=== PATIENT | male | born 1960 | race Caucasian/White ===

== ENCOUNTER → 2022-02-17 01:58 | Outpatient (CLI) | payer BC, SELFPAY ==
--- NOTE | 2022-02-17 11:00 | DI.NM_ITS ---
APPROVED REPORT Exam: Exercise Treadmill Patient Location: Out-Patient Room/Bed: Stress Nurse: Sherrill Holland RN Ordering Provider:DANICA ONEILL, Contact Number: BMI: 28.69 Baseline Rhythm: Sinus Rhythm Comment: Mild diffuse ST elevations Indications: Chest pain Medical History Medical History: HLD Cardiac Medications: Atorvastatin Allergies: No known drug allergies Cardiac Risk Factors: Family hx, 2nd hand smoke, HLD Pretest Chest Pain Characteristics: None Exercise History: Indeterminate Physical Disabilities: None Lung Sounds: Clear to auscultation Heart Sounds: Regular Stress Test Details Test: Exercise stress testing was performed using a Jace protocol. Nuclear Acquisition: Rest Tc-99m/Stress Tc-99m 1 day Rest Isotope: Tc-99m Sestamibi. Dose: 10.2 Date: 02/17/2022 Injection Time: 1110 Stress Isotope: Tc-99m Sestamibi. Dose: 32.0 Date: 02/17/2022 Injection Time: 1245 HR Resting HR Supine: 62 bpm Max Heart Rate (APMHR): 161.117743 bpm Resting HR Standin bpm Target HR (85% APMHR): 136.588761 bpm Max HR Achieved: 160 bpm % of APMHR: 99.38 Recovery HR: 79 bpm HR response to stress: Normal HR response to stress BP Resting BP Supine: 138/88 mmHg Resting BP Standin/88 mmHg Max BP: 182/70 mmHg Recovery BP: 138/78 mmHg BP response to stress: Normal blood pressure response to stress. ECG Resting ECst degree AV block Ectopy: none Comment: Mild diffuse ST elevations Stress ECG: Sinus Tachycardia ST Change: No significant ST segment changes noted Arrhythmia: None Recovery ECG: Sinus Rhythm Recovery ST Change: No significant ST segment changes noted Recovery Arrhythmia: None Clinical Reason for Termination: Fatigue Stress Symptoms: General Fatigue Exercise duration: 11 min01 sec Highest Stage Reached: Stage 4: 4.2 mph at 16% grade. Exercise capacity: 13.48 METs Rate Pressure Product: 65204 Stress ECG Conclusion 1. The resting electrocardiogram showed minor diffuse ST elevation 2. Patient exercised on the Jace protocol and completed a workload of 13.48 METS stopping due to fat igue 3. Normal heart rate and blood pressure response to exercise. Patient achieved 98% of predicted hear t rate for age 4. Electrocardiographic portion of the test was negative for myocardial ischemia 5. There were no dysrhythmias 6. See MPI report Stress Test Summary STAGE Time (mins) Speed (mph) Grade (%) HR BP SYMPTOMS METS Supine 62 138/88 Standing 75 122/88 1 3 1.7 10 97 148/80 4.6 2 6 2.5 12 113 160/72 7 3 9 3.4 14 133 180/70 10.2 4 12 4.2 16 158 12.9 1 min recovery 129 182/70 3 min recovery 82 170/70 6 min recovery 79 138/78 MPI Conclusion Myocardial perfusion is normal without evidence of ischemia or prior infarction EF is 62%, wall motion is normal Radiologist Interpretation Radiologist agrees with Refinery Superintendent's Interpretation. Radiologist Interpretation by: Sahra Sullivan MD Interpretation Date/Time: 02/17/2022 16:43:13
== END ==
PROVIDERS: Visit Provider Internal Medicine
DX: R07.89 Other chest pain (principal)
CPT/HCPCS: 78452; 93017

== ENCOUNTER 2025-05-07 03:02 | Outpatient (CLI) | payer BC, SELFPAY ==
--- NOTE | 2025-05-07 | DI.RAD_ITS ---
Exam(s) RF MODIFIED SPEECH BA SWALLOW EXAM: RF MODIFIED SPEECH BA SWALLOW CLINICAL HISTORY: ASPIRATION TECHNIQUE: Modified barium swallow was performed in conjunction with speech pathology. CONTRAST MATERIAL: Multiple consistencies of oral barium contrast were administered. COMPARISON: No exams were available for comparison FINDINGS: Note that this is not a dedicated esophagram, distal esophagus not evaluated. There was laryngeal penetration with thin liquid. There is no evidence of aspiration with any consistency. IMPRESSION: Laryngeal penetration with thin liquid. Speech pathology report to follow. RADIATION DOSE DELIVERED: gerda Howard=15.3 mGy
[2025-05-07] MEDS: Barium Sulfate 40% W/V 240 ML BTL PO (14:46)
[2025-05-07] MEDS: Barium Sulfate 700 MG TAB PO (14:46)
[2025-05-07] MEDS: Barium Sulfate 81% w/w for Oral Suspension 148 GM BTL PO (14:47)
[2025-05-07] MEDS: Barium Sulfate Oral Paste 40% W/V 230 ML TUBE PO (14:49)
--- NOTE | 2025-05-09 19:28 | ST.MBS_ITS ---
Date of Service Date of service: 05/07/25 Time of Service: 14:30 Modified Barium Swallow Study Findings: Video fluoroscopic Swallowing Evaluation (VFSE) / Modified Barium Swallow Study (MBSS) Speech Language Pathology Report Patient referred for VFSE/MBSS from Dr. Amira Mccoy given concerns for aspiration. 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 Has presented to ER for dyspnea with unrevealing workup. Followed by Speech at [facility], recommended for MBSS at [facility] to clarify diet and treatment recommendations. Patient has no recent hx of aspiration pneumonia, but reports self-limiting his diet due to a fear of choking. Initially and recently on a pureed diet, but recently progressed to more soft and regular solids. Reportedly with poor cough strength, frequently coughing on water. IMPRESSIONS: Dysphagia diagnosis: Mild oral>pharyngeal dysphagia. Dysphagia is characterized primarily by reduced oral-motor coordination resulting in intermittent disorganized vs delayed swallow onset (at level of pyriform sinus) for thin liquids. This results in flash penetration with spontaneous clearance by swallow completion due to good laryngeal closure. Flash penetration above the level of vocal cords was prevented with small sip size. For larger sip sizes, chin tuck was also effective to prevent penetration, however, patient noting this takes considerably more effort given his oral-motor discoordination and weakness. There was also no penetration with mildly thick liquids. Only trace vallecular residue present, suspect due to mild reduced stripping wave and tongue base retraction, however, this amount of residue is a normal finding in typical adults without CVA as well. There was no pyriform residue and all textures transited the UES without difficulty. Dry regular solid bolus resulted in mild-moderate posterior lingual residue but improved spontaneouslywith secondary swallow and completely resolved with cued liquid wash. There was no aspiration into the airway. Hyo-laryngeal motility was complete, though mildly delayed. Swallow safety: Patient appears to be at low risk for potential aspiration PNA and/or pulmonary compromise. Swallow efficiency: Patient appears to be at low risk for malnutrition, low risk for dehydration. RECOMMENDATIONS: Diet Texture Recommendation:? IDDSI LEVEL SOLIDS 7-Regular Solids, prn cut into bite size with extra sauce/gravy for oral clearance LIQUIDS 0-Thin Liquids Please see further details at?[email or web address] MEDICATIONS Whole with 0-Thin Liquids (small sips) or 4-Puree as needed for comfort/tolerance Diet texture modification is per patient's preference; please adjust diet textures at patient's discretion & collaboration with care team. Do not alter medications (e.g., cut)? without advice from your MD or pharmacist. Risk Management Strategies:? Small bites, approx [id number] Small sips, approx 5mL/tsp Alternate solids/liquids or secondary saliva swallow as needed for oral clearance Control risk factors for aspiration pneumonia via (a) thorough oral hygiene & (b) maintaining physical mobility as tolerated Swallow prognosis is good given: Positive prognostic factors: Age, Severity, Time since onset, Motivation, PLAN: Therapy: Recommend subsequent outpatient session with SOLAR SITE ASSESSMENT SPECIALIST to review results of today's exam and develop treatment plan as appropriate. May consider the following: Targeted Oropharyngeal Exercise per treating SOLAR SITE ASSESSMENT SPECIALIST Consider: Training in RMST Program for improvement in swallow timing, cough strength. Further Counseling re: Options for maintaining quality of life in context of dysphagia presentation OBJECTIVE Videofluoroscopic Swallow Evaluation (VFSE/MBSS) was conducted in the lateral and [id number] projection by Speech-Language Pathologist, in collaboration with Radiologist, to evaluate oropharyngeal swallow function. This is not a dedicated esophageal exam, esophageal function was not evaluated below the upper esophageal segment. 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 PO Barium Contrast Trials Oral barium water-soluble contrast was administered as follows: IDDSI Level 0 Varibar thin liquid (40% w/v) IDDSI Level 2 Varibar nectar thick/mildly thick liquid (40% w/v) IDDSI Level 4 Varibar pudding/pureed/extremely thick (40% w/v) IDDSI Level 7 Regular Solid: 1/2 leonid cracker coated in 3 mL Varibar pudding 13 mm barium tablet taken with Thin Liquids. MBSImP Component Scores: COMPONENT Scale SCORE 1 Lip closure (0-4) 1 Resulted in interlabial escape, without progression to anterior lip 2 Hold Position (0-3) 0 Maintained a cohesive bolus between tongue to palatal seal 3 Bolus Preparation (0-4) 1 Resulted in slow prolonged chewing/mashing with complete re-collection 4 Bolus Transport (0-4) 1 Demonstrated delayed initiation of tongue motion 5 Oral Residue (0-4) 2 Was a collection on oral structures 6 Swallow Initiation (0-4) 3 Occurred when the bolus head was in the pyriform sinuses 7 Soft Palate Elevation (0-4) 0 Resulted in no bolus between soft palate and t he pharyngeal wall 8 Laryngeal Elevation (0-3) 1 Was decreased with partial superior movement of thyroid cartilage/partial approximation of arytenoids to epiglottic petiole 9 Anterior Hyoid Motion (0-2) 0 Demonstrated complete anterior movement 10 Epiglottic Movement (0-2) 0 Resulted in complete inversion 11 Laryngeal Closure (0-2) 0 Was complete with no air or contrast in laryngeal vestibule 12 Pharyngeal Stripping Wave (0-2) 1 Was present, but diminished 13 Pharyngeal Contraction (0-3) 0 Was complete 14 PES Opening (0-3) 0 Was completely distended and complete duration with no obstruction of flow 15 Tongue Base Retraction (0-4) 1 Allowed a trace column of contrast or air between tongue base and pharyngeal wall 16 Pharyngeal Residue (0-4) 1 Showed a trace within or on pharyngeal structure s 17 Esophageal Clearance (0-4) NA Results: COMPONENT Scale SCORE 1 Oral Score (0-18) 7 2 Pharyngeal Score (0-29) 2 3 Esophageal Score (0-4) 0 Dysphagia Outcome and Severity Scale: COMPONENT Scale SCORE 1 LEVEL (1-7) 6 Full PO: Normal Diet - Within functional limits/modified independence Penetration-Aspiration Scale: COMPONENT Scale SCORE 1 Thin liquid (1-8) 2 Contrast entered the airway, remained above the vocal folds, and was ejected from the airway. 2 [place] thick (1-8) 1 Contrast did not enter the airway 3 Honey thick (1-8) NA 4 Pudding thick (1-8) 1 Contrast did not enter the airway 5 Cookie (1-8) 1 Contrast did not enter the airway [place]fa Pharyngeal Residue Severity Rating Scale (YPRS) (Solis, et al, 2015) Vallecula Residue Severity II Trace 1-5% Trace coating of the mucosa Pyriform Sinus Residue Severity I None 0% No residue Trialed Compensatory Strategies & Outcome: Maneuvers Successful (+) Unsuccessful (-) Postures Successful (+) Unsuccessful (-) 3 second Preparatory Set? ? [place] sture? ?+ Cough? ? Posterior Head tilt? Reflexive? Cued? Throat Clear? ? Head Tilt to? Reflexive? Left? Cued? Right? ? Saliva swallow? ?+ Head Turn/Rotate to? ? Supraglottic Swallow? Left? ? Super-supraglottic Swallow? Right? ? Bolus Modifications Successful (+) Unsuccessful (-) Delivery/Alternating Consistencies ? Follow with Liquid Wash + ? Follow with Solid Bolus? Delivery/Via Straw? ? Reduced Volume? ?+ Reduced Rate of Intake? ? Increased Viscosity? ?+ Other:?? ? Thank you for allowing us to take part in this patient's care. Please feel free to contact the [facility] Speech Language Pathology Department with any questions/concerns.
== END 2025-05-07 03:22 ==
PROVIDERS: PCP Internal Medicine; Visit Provider Internal Medicine
DX: J38.7 Other diseases of larynx (principal)
CPT/HCPCS: 92526; 74221